=== PATIENT | female | born 1985 | race Caucasian/White ===

== ENCOUNTER 2019-03-02 11:57 | Inpatient (IN) | payer MEDICAID ==
[2019-03-02] MEDS ORDERED: MISOPROSTOL 200 MCG TAB PR (12:30)
[2019-03-02] MEDS ORDERED: METHYLERGONOVINE 0.2 MG INJ IM (12:30)
[2019-03-02] MEDS ORDERED: LIDOCAINE 1% (MPF) 30 ML INJ INJ (12:30)
[2019-03-02] MEDS ORDERED: CARBOPROST 250 MCG INJ IM (12:30)
[2019-03-02] MEDS ORDERED: BUTORPHANOL 2 MG INJ IV (12:30)
[2019-03-02] MEDS ORDERED: IBUPROFEN 600 MG TAB PO (12:30)
[2019-03-02] MEDS ORDERED: OXYTOCIN 30 UNITS/LR 500 ML IV ×2 (12:30)
[2019-03-02 12:53] LABS: ADD MAN DIFF? NO
[2019-03-02 13:01] LABS: WHITE BLOOD COUNT 7.2 10^3/ul (4.8-10.8)
[2019-03-02 13:01] LABS: BASOPHILS % 0.3 % (0.0-2.0); EOSINOPHILS % 0.6 % (0.0-7.0); HEMATOCRIT 30.8 % (37.0-47.0); HEMOGLOBIN 10.4 g/dl (12.0-16.0); LYMPHOCYTES # 1.3 10^3/ul (0.8-2.9); LYMPHOCYTES % 18.3 % (15.0-51.0); MEAN CORPUSCULAR HEMOGLOBIN 28.7 pg (29.0-33.0); MEAN CORPUSCULAR HGB CONC 33.8 g/dl (32.0-37.0); MEAN CORPUSCULAR VOLUME 84.8 fl (82.0-101.0); MEAN PLATELET VOLUME 11.4 fl (7.4-10.4); MONOCYTE # 0.5 10^3/ul (0.3-0.9); MONOCYTES % 6.7 % (0.0-11.0); NEUTROPHIL # 5.3 10^3/ul (1.6-7.5); NEUTROPHILS % 73.8 % (39.0-77.0); PLATELET COUNT 221 10^3/UL (140-415); RED BLOOD COUNT 3.63 10^6/ul (4.20-5.40); RED CELL DISTRIBUTION WIDTH 13.9 % (11.5-14.5)
[2019-03-02 13:16] LABS: INR 0.85; PROTIME 11.7 Sec (11.9-14.9); PT RATIO 0.9
[2019-03-02 13:17] LABS: PARTIAL THROMBOPLASTIN TIME 25.8 Sec (23.0-35.0)
[2019-03-02 13:47] LABS: HEPATITIS B SURFACE ANTIGEN NEGATIVE (NEGATIVE)
[2019-03-02] MEDS: LACTATED RINGER'S 1,000 ML IV ×3 (14:22→21:25)
[2019-03-02] MEDS: OXYTOCIN 30 UNITS/LR 500 ML IV (14:22)
[2019-03-02 15:43] LABS: AMPHETAMINE/METHAMPHETAMINE Negative (NEGATIVE); BARBITURATES Negative (NEGATIVE); BENZODIAZEPINES Negative (NEGATIVE); CANNABINOIDS Negative (NEGATIVE); COCAINE Negative (NEGATIVE); OPIATES Negative (NEGATIVE)
[2019-03-02 15:44] LABS: RAPID PLASMA REAGIN NONREACTIVE (NR)
[2019-03-02] MEDS ORDERED: NALOXONE (0.4 MG/ML) INJ IV ×2 (21:00)
[2019-03-02] MEDS ORDERED: HYDROmorphONE 0.5 MG/0.5 ML SYG IV ×2 (21:00)
[2019-03-02] MEDS ORDERED: ZOLPIDEM 5 MG TAB PO (21:00)
[2019-03-02] MEDS ORDERED: FENTAnyl 2MCG/ML-ROPIV 0.2% 100 ML BAG EPI (21:00)
[2019-03-02] MEDS ORDERED: DIPHENHYDRAMINE 50 MG INJ IV (21:00)
[2019-03-02] MEDS ORDERED: KETOROLAC 30 MG INJ IV (21:00)
[2019-03-02] MEDS ORDERED: ONDANSETRON 4 MG INJ IV (21:00)
[2019-03-03] MEDS: LACTATED RINGER'S 1,000 ML IV (04:04)
[2019-03-03] MEDS: FENTAnyl 2MCG/ML-ROPIV 0.2% 100 ML BAG EPI ×2 (05:08→11:05)
[2019-03-03] MEDS: MINERAL OIL LIGHT 10 ML VIAL TOP (11:30)
[2019-03-03] MEDS ORDERED: METHYLERGONOVINE 0.2 MG INJ IM (12:00)
[2019-03-03] MEDS ORDERED: NACL 0.9% 3 ML SYG IV (12:00)
[2019-03-03] MEDS ORDERED: MISOPROSTOL 200 MCG TAB PR (12:00)
[2019-03-03] MEDS ORDERED: OXYCODONE/ASPIRIN (4.88/325) TAB PO ×2 (12:00)
[2019-03-03] MEDS ORDERED: ONDANSETRON 4 MG INJ IV (12:00)
[2019-03-03] MEDS ORDERED: OXYTOCIN 30 UNITS/LR 500 ML IV (12:00)
[2019-03-03] MEDS ORDERED: CARBOPROST 250 MCG INJ IM (12:00)
[2019-03-03] MEDS: OXYTOCIN 30 UNITS/LR 500 ML IV ×2 (12:31→17:11)
[2019-03-03] MEDS: IBUPROFEN 600 MG TAB PO ×2 (12:41→17:12)
[2019-03-03] MEDS: SENNA/DOCUSATE NA (8.6MG/50MG) TAB PO (20:51)
[2019-03-03] MEDS: WITCH HAZEL/GLYCERIN PAD PR (20:53)
[2019-03-03] MEDS: BENZOCAINE 20% 56 ML SPRAY TOP (20:53)
[2019-03-03] MEDS: LANOLIN HPA 1 PKT TOP (20:53)
[2019-03-04] MEDS: IBUPROFEN 600 MG TAB PO ×5 (00:17→23:56)
[2019-03-04 07:14] LABS: ADD MAN DIFF? NO
[2019-03-04 07:28] LABS: WHITE BLOOD COUNT 9.6 10^3/ul (4.8-10.8)
[2019-03-04 07:28] LABS: BASOPHILS % 0.3 % (0.0-2.0); EOSINOPHILS # 0.1 10^3/ul (0.0-0.5); EOSINOPHILS % 0.5 % (0.0-7.0); HEMATOCRIT 30.3 % (37.0-47.0); HEMOGLOBIN 10.2 g/dl (12.0-16.0); LYMPHOCYTES # 1.8 10^3/ul (0.8-2.9); LYMPHOCYTES % 19.2 % (15.0-51.0); MEAN CORPUSCULAR HEMOGLOBIN 28.4 pg (29.0-33.0); MEAN CORPUSCULAR HGB CONC 33.7 g/dl (32.0-37.0); MEAN CORPUSCULAR VOLUME 84.4 fl (82.0-101.0); MEAN PLATELET VOLUME 11.6 fl (7.4-10.4); MONOCYTE # 0.7 10^3/ul (0.3-0.9); MONOCYTES % 6.8 % (0.0-11.0); PLATELET COUNT 204 10^3/UL (140-415); RED BLOOD COUNT 3.59 10^6/ul (4.20-5.40); RED CELL DISTRIBUTION WIDTH 14.3 % (11.5-14.5)
[2019-03-04] MEDS: SENNA/DOCUSATE NA (8.6MG/50MG) TAB PO ×2 (09:07→21:11)
[2019-03-05] MEDS: IBUPROFEN 600 MG TAB PO ×2 (05:31→11:19)
[2019-03-05] MEDS: SENNA/DOCUSATE NA (8.6MG/50MG) TAB PO (09:17)
== END 2019-03-05 13:30 | disposition home or self-care (01) | DRG 807 ==
LOC: L-D 11:57 → PP1 03-03 13:39
PROC: 3E033VJ Introduction of Other Hormone into Peripheral Vein, Percutaneous Approach (ICD-10-PCS; 2019-03-02 12:00)
DX: O48.0 Post-term pregnancy (principal); O70.0 First degree perineal laceration during delivery; O69.81X0 Labor and delivery complicated by cord around neck, without compression, not applicable or unspecified; Z3A.40 40 weeks gestation of pregnancy; Z37.0 Single live birth
CPT/HCPCS: 62322; 76815; 80307; 85025; 85610; 85730; 86592; 86850; 86900; 86901; 87340